=== PATIENT | male | born 1945 | race Two or more races ===

== ENCOUNTER 2023-07-15 15:08 | Emergency (ER) | payer OTHER ==
[~2023-07-15] VITALS: Ht 170.2 cm; Wt 83.9 kg
[2023-07-15] MEDS ORDERED: ADULT LOW DOSE81 M1 (15:26)
[2023-07-15] MEDS ORDERED: LIPITOR20 MG (15:26)
== END 2023-07-15 21:06 | disposition home or self-care (01) ==
LOC: ER 15:08
DX: M54.59 Other low back pain (principal); M47.816 Spondylosis without myelopathy or radiculopathy, lumbar region
CPT/HCPCS: 72100; 96365; 96372; 99283; J1885; J2360; J2930